=== PATIENT | male | born 1970 | race Caucasian/White ===

== ENCOUNTER 2025-04-02 08:50 | Inpatient (IN) | payer MEDICAID ==
[~2025-04-02] VITALS: Ht 172.7 cm; Wt 87.1 kg
[2025-04-02 08:25] VITALS: BP_SYST 113; BP_SYST 16; BP_DIAS 113; BP_DIAS 81; PULSE 65; RESP 16; TEMP 97.4; O2SAT 94
[~2025-04-02 08:50] MED LIST: FLUO-177 PO; OLAN5TAB94 PO; OMEP-148 PO
[2025-04-02 10:15] VITALS: O2SAT 99
[2025-04-02 11:41] VITALS: BP 126/88; PULSE 77; RESP 18; TEMP 97.6; O2SAT 98
[2025-04-02] MEDS ORDERED: INFLUENZA VIRUS VACCINE TVS (6MO+) 2025-26/PF 45 MCG/0.5 ML SYRINGE IM. ONE (12:00)
[2025-04-02] MEDS ORDERED: IBUPROFEN 400 MG TABLET PO PRN (20:30)
[2025-04-02] MEDS ORDERED: ALBUTEROL SULFATE HFA 90 MCG/PUFF 8 GM INHALER IH PRN (20:30)
[2025-04-02] MEDS ORDERED: DOCUSATE SODIUM 100 MG CAPSULE PO PRN (20:30)
[2025-04-02] MEDS ORDERED: GuaiFENesin/D-METHORPHAN [SUGAR-FREE] 200-20MG/10 ML SYRUP UDCUP PO PRN (20:30)
[2025-04-02] MEDS ORDERED: LOPERAMIDE HCL 2 MG CAPSULE PO PRN (20:30)
[2025-04-02] MEDS ORDERED: NICOTINE 14 MG/24 HOUR PATCH TD PRN (20:30)
[2025-04-02] MEDS ORDERED: ACETAMINOPHEN 325 MG TABLET PO PRN (20:30)
[2025-04-02] MEDS ORDERED: PETROLATUM,WHITE 28 GM JELLY TP PRN (20:30)
[2025-04-02] MEDS ORDERED: MAG HYDROX/ALUMINUM HYD/SIMETH ES 30 ML SUSPENSION UDCUP PO PRN (20:30)
[2025-04-02] MEDS ORDERED: ONDANSETRON 4 MG TABLET PO PRN (20:30)
[2025-04-02 20:33] VITALS: BP 106/58; PULSE 67; RESP 16; TEMP 98.3; O2SAT 97
[2025-04-03] MEDS: OMEPRAZOLE 20 MG CAPSULE PO SCH (08:21)
[2025-04-03 08:58] VITALS: RESP 18
[2025-04-03 17:15] VITALS: RESP 16
[2025-04-03 21:09] VITALS: RESP 18
[2025-04-04 08:43] VITALS: RESP 18
[2025-04-04 11:53] VITALS: BP 121/99; PULSE 89
[2025-04-04] MEDS: MAGNESIUM HYDROXIDE SUSPENSION 30 ML UDCUP PO PRN (18:58)
[2025-04-04 20:38] VITALS: BP 121/77; PULSE 84; RESP 17; TEMP 98.1; O2SAT 97
[2025-04-04] MEDS: ZOLPIDEM TARTRATE 10 MG TABLET PO PRN (20:56)
[2025-04-05 08:38] VITALS: BP 101/77; PULSE 78; RESP 18; TEMP 98.3; O2SAT 100
[2025-04-05 08:57] LABS: RED BLOOD CELL COUNT(AUTO) 5.29 MIL/uL (4.50-5.90); RED CELL DISTRIBUTION WIDTH 13.0 % (11.5-14.5); WHITE BLOOD COUNT (AUTO) 7.6 K/uL (4.5-11.0)
[2025-04-05 09:34] LABS: PLATELET COUNT (AUTO) 201 K/uL (150-450)
== END 2025-04-05 16:01 | disposition home or self-care (01) | DRG 751 ==
LOC: B3A 08:54
PROVIDERS: ADMIT Psychiatry & Neurology Psychiatry; ATTEND Psychiatry & Neurology Psychiatry
PROC: GZHZZZZ Group Psychotherapy (ICD-10-PCS; principal; 2025-04-03)
PROC: GZ52ZZZ Individual Psychotherapy, Cognitive (ICD-10-PCS; 2025-04-04)
DX: F33.2 Major depressive disorder, recurrent severe without psychotic features (principal); R45.851 Suicidal ideations; Z59.00 Homelessness unspecified; B18.2 Chronic viral hepatitis C; D49.7 Neoplasm of unspecified behavior of endocrine glands and other parts of nervous system; E78.00 Pure hypercholesterolemia, unspecified; F12.10 Cannabis abuse, uncomplicated; F17.200 Nicotine dependence, unspecified, uncomplicated; F43.81 Prolonged grief disorder; I10 Essential (primary) hypertension; K21.9 Gastro-esophageal reflux disease without esophagitis; Z63.4 Disappearance and death of family member; Z79.899 Other long term (current) drug therapy; Z82.49 Family history of ischemic heart disease and other diseases of the circulatory system; Z91.51 Personal history of suicidal behavior; Z86.69 Personal history of other diseases of the nervous system and sense organs
CPT/HCPCS: 85025